=== PATIENT | female | born 1940 | race Caucasian/White ===

== ENCOUNTER 2017-06-13 14:26 | Emergency (ER) | payer MEDICARE, BC ==
[2017-06-13] MEDS ORDERED: ATARAX 25 MG PO ONE (15:42)
[2017-06-13] MEDS ORDERED: TYLENOL 325 MG PO ONE (15:46)
--- NOTE | 2017-06-13 15:46 | ERPHSYRPT ---
- History of Present Illness Time Seen by Provider: 06/13/17 15:31 Source: patient, family () Physician History: CC: high blood pressure Hx: 76 y/o patient of RONAL Flores. She has hx of HTN. She has recent sinus drng. She noted elevated BP this AM so took an extra norvasc tablet. No chest pain, abd pain, N/V, N/T/W. She has some headache. Was worried about BP so came to ER. Severity: mild Allergies/Adverse Reactions: aspirin Allergy (Mild, Verified 06/13/17 15:24) Sulfa (Sulfonamide Antibiotics) Allergy (Mild, Verified 06/13/17 15:24) Home Medications: Amlodipine Besylate [Norvasc] 2.5 mg PO UD 06/13/17 [History] Lisinopril 20 mg [Zestril 20 MG] 20 mg PO DAILY 06/13/17 [History] Hx Tetanus, Diphtheria Vaccination/Date Given: Yes Hx Influenza Vaccination/Date Given: No Hx Pneumococcal Vaccination/Date Given: Yes - Review of Systems Constitutional: No Fever, No Chills Eyes: No Vision Changes Respiratory: No Dyspnea Cardiac: No Chest Pain Abdominal/Gastrointestinal: No Abdominal Pain, No Nausea, No Vomiting Musculoskeletal: No Back Pain, No Neck Pain Skin: No Rash Neurological: Headache, No Dizziness, No Focal Weakness, No Parasthesia All Other Systems: Reviewed and Negative - Past Medical History Pertinent Past Medical History: Yes Neurological History: No Pertinent History ENT History: No Pertinent History Cardiac History: Hypertension Respiratory History: Pneumonia Endocrine Medical History: Liver Disease, Other Musculoskeletal History: No Pertinent History GI Medical History: Colitis, Diverticulitis, Diverticulosis, GERD, Gallbladder Disease, Hemorrhoids, Polyps, Ulcer History: No Pertinent History Psycho-Social History: No Pertinent History Female Reproductive Disorders: No Pertinent History Other Medical History: anemia,LIVER DUCT PROBLEM - Past Surgical History Past Surgical History: Yes Cardiac: No Pertinent History Respiratory: No Pertinent History Gastrointestinal: Appendectomy, Cholecystectomy Genitourinary: No Pertinent History Musculoskeletal: Orthopedic Surgery Female Surgical History: Hysterectomy Other Surgical History: rt wrist with plate place and lt foot ,TONSILS - Social History Smoking Status: Never smoker Exposure to second hand smoke: No Drug Use: none Patient Lives Alone: No - Nursing Vital Signs Nursing Vital Signs: Initial Vital Signs Temperature 97.6 F 06/13/17 15:15 Pulse Rate 87 06/13/17 15:15 Respiratory Rate 18 06/13/17 15:15 Blood Pressure 174/100 06/13/17 15:15 O2 Sat by Pulse Oximetry 98 06/13/17 15:15 Pain Scale Pain Intensity 2 - Physical Exam General Appearance: alert Eye Exam: PERRL/EOMI Ears, Nose, Throat Exam: normal ENT inspection, moist mucous membranes Neck Exam: normal inspection, non-tender, supple Respiratory Exam: normal breath sounds Cardiovascular Exam: regular rate/rhythm Gastrointestinal/Abdomen Exam: soft, No tenderness, No distention Back Exam: normal inspection Extremity Exam: normal inspection, normal range of motion Neurologic Exam: alert, oriented x 3, cooperative, sensation nml, No motor deficits Skin Exam: warm, dry, No rash - Course Nursing assessment & vital signs reviewed: Yes EKG Interpreted by Me: RATE (82), Sinus Rhythm, NORMAL AXIS, NORMAL INTERVALS ( QTc 423), NORMAL QRS, NORMAL ST-T - Radiology Exams cxr X-ray Interpretation: Reviewed by me, Negative Ordered Tests: Active Orders 24 hr Category Date Time Status Clean Catch Urine Specimen STAT Care 06/13/17 15:41 Active EKG-ER Only STAT Care 06/13/17 15:41 Active IV Insertion STAT Care 06/13/17 15:41 Active CHEST 2 VIEWS (PA AND LAT) Stat Exams 06/13/17 15:42 Taken CBC W DIFF Stat Lab 06/13/17 15:53 Completed CMP Stat Lab 06/13/17 15:53 Completed UA W/ MICROSCOPIC Stat Lab 06/13/17 16:10 Completed Medication Summary Discontinued Medications Generic Name Dose Route Start Last Admin Trade Name Suresh PRN Reason Stop Dose Admin Acetaminophen 650 mg 06/13/17 15:46 06/13/17 15:59 Tylenol 325 Mg PO 06/13/17 15:47 650 mg STAT ONE Administration Acetaminophen Confirm 06/13/17 15:58 Tylenol 325 Mg Administered 06/13/17 15:59 Dose 650 mg .ROUTE .STK-MED ONE Hydroxyzine HCl 25 mg 06/13/17 15:42 06/13/17 15:53 Atarax 25 Mg PO 06/13/17 15:43 25 mg STAT ONE Administration Hydroxyzine HCl Confirm 06/13/17 15:47 Atarax 25 Mg Administered 06/13/17 15:48 Dose 25 mg .ROUTE .STK-MED ONE Lab/Rad Data: Laboratory Result Diagrams 06/13/17 15:53 06/13/17 15:53 Laboratory Results 06/13/17 06/13/17 06/13/17 Range/Units 16:10 15:53 15:53 WBC (4.0-10.5) K/mm3 RBC (4.1-5.4) M/mm3 Hgb (12.0-16.0) gm/dl Hct (35-47) % MCV (78-100) fl MCH (26-32) pg MCHC (32-36) g/dl RDW (11.5-14.0) % Plt Count (150-450) K/mm3 MPV (6-9.5) fl Gran % (36.0-66.0) % Lymphocytes % (24.0-44.0) % Monocytes % (0.0-12.0) % Eosinophils % (0.00-5.0) % Basophils % (0.0-0.4) % Basophils # (0-0.4) Sodium 143 (136-145) mEq/L Potassium 3.7 (3.5-5.1) mEq/L Chloride 108 H (98-107) mEq/L Carbon Dioxide 28.0 (21-32) mEq/L Anion Gap 10.7 (5-15) MEQ/L BUN 10 (9-20) mg/dL Creatinine 1.13 (0.55-1.30) mg/dl Estimated GFR 50 ML/MIN Glucose 211 H (70-110) MG/DL Hemoglobin A1c 5.7 (4.5-6.2) Calcium 9.8 (8.5-10.1) mg/dL Total Bilirubin 0.50 (0.2-1.0) mg/dL AST 22 (15-37) U/L ALT 29 (12-78) U/L Alkaline Phosphatase 98 (46-116) U/L Serum Total Protein 6.9 (6.4-8.2) gm/dL Albumin 3.4 (3.4-5.0) g/dL Ur Collection Type CCMS Urine Color YELLOW (YELLOW) Urine Appearance SLIGHTLY CLOUDY (CLEAR) Urine pH 8.0 (5-6) Ur Specific [place] 1.010 (1.005-1.025) Urine Protein NEGATIVE (Negative) Urine Ketones NEGATIVE (NEGATIVE) Urine Blood 50 (0-5) Ruben/ul Urine Nitrite NEGATIVE (NEGATIVE) Urine Bilirubin NEGATIVE (NEGATIVE) Urine Urobilinogen NORMAL (0-1) mg/dL Ur Leukocyte Esterase 1+ (NEGATIVE) Urine Microscopic RBC 0-2 (0-2) /HPF Urine Microscopic WBC 0-2 (0-5) /HPF Ur Epithelial Cells RARE (FEW) /HPF Urine Bacteria RARE (NEGATIVE) /HPF Urine Glucose 500 (NEGATIVE) mg/dL Specimen Received 1610 06/13/17 06/13/17 Range/Units 15:53 WBC 7.4 (4.0-10.5) K/mm3 RBC 4.41 (4.1-5.4) M/mm3 Hgb 14.5 (12.0-16.0) gm/dl Hct 43.2 (35-47) % MCV 98.0 (78-100) fl MCH 32.9 H (26-32) pg MCHC 33.6 (32-36) g/dl RDW 12.6 (11.5-14.0) % Plt Count 227 (150-450) K/mm3 MPV 8.7 (6-9.5) fl Gran % 55.8 (36.0-66.0) % Lymphocytes % 31.3 (24.0-44.0) % Monocytes % 11.0 (0.0-12.0) % Eosinophils % 1.5 (0.00-5.0) % Basophils % 0.4 (0.0-0.4) % Basophils # 0.03 (0-0.4) Sodium (136-145) mEq/L Potassium (3.5-5.1) mEq/L Chloride (98-107) mEq/L Carbon Dioxide (21-32) mEq/L Anion Gap (5-15) MEQ/L BUN (9-20) mg/dL Creatinine (0.55-1.30) mg/dl Estimated GFR ML/MIN Glucose (70-110) MG/DL Hemoglobin A1c (4.5-6.2) Calcium (8.5-10.1) mg/dL Total Bilirubin (0.2-1.0) mg/dL AST (15-37) U/L ALT (12-78) U/L Alkaline Phosphatase (46-116) U/L Serum Total Protein (6.4-8.2) gm/dL Albumin (3.4-5.0) g/dL Ur Collection Type Urine Color (YELLOW) Urine Appearance (CLEAR) Urine pH (5-6) Ur Specific [place] (1.005-1.025) Urine Protein (Negative) Urine Ketones (NEGATIVE) Urine Blood (0-5) Ruben/ul Urine Nitrite (NEGATIVE) Urine Bilirubin (NEGATIVE) Urine Urobilinogen (0-1) mg/dL Ur Leukocyte Esterase (NEGATIVE) Urine Microscopic RBC (0-2) /HPF Urine Microscopic WBC (0-5) /HPF Ur Epithelial Cells (FEW) /HPF Urine Bacteria (NEGATIVE) /HPF Urine Glucose (NEGATIVE) mg/dL Specimen Received - Progress Progress Note: 06/13/17 15:45 She is nervous about BP. She has no focal deficits nor symptoms of acute problem. Reassurance given. Will check cxr and EKG and labs. Vistaril and APAP will be given. 06/13/17 17:26 Pt feels better. No longer feels like she is in outer space. She ambulated well in the hallway. Will release to follow up with RONAL Flores. Glc high but the A1C was good. Advised no added sugar diet and follow up. Counseled pt/family regarding: lab results, diagnosis, need for follow-up - Departure Time of Disposition: 17:27 Departure Disposition: Home Clinical Impression: Essential hypertension, Hyperglycemia Condition: Stable Critical Care Time: No Referrals: ADONAY FLORES [Primary Care Provider] - Instructions: High Blood Pressure, Hyperglycemia -- Adult Additional Instructions: No added sugars. Take your normal medications as prescribed. Follow up with RONAL Flores Thursday. Check blood pressure and record it twice a day and take to office. Return for problems or concerns.
[2017-06-13] MEDS ORDERED: ATARAX 25 MG ONE (15:47)
[2017-06-13] MEDS ORDERED: TYLENOL 325 MG ONE (15:58)
[2017-06-13 16:01] LABS: BASOPHIL % 0.4 % (0.0-0.4); Eosinophil % 1.5 % (0.00-5.0); Granulocytes % 55.8 % (36.0-66.0); Lymphocytes % 31.3 % (24.0-44.0); Mean Corpuscular Hemoglobin 32.9 pg (26-32); Mean Platelet Volume 8.7 fl (6-9.5); Platelet Count 227 K/mm3 (150-450); Red Blood Count 4.41 M/mm3 (4.1-5.4); Red Cell Distribution Width 12.6 % (11.5-14.0); White Blood Count 7.4 K/mm3 (4.0-10.5)
[2017-06-13 16:16] LABS: ALBUMIN 3.4 g/dL (3.4-5.0); ANION GAP 10.7 MEQ/L (5-15); BILIRUBIN,TOTAL 0.5 mg/dL (0.2-1.0); Potassium 3.7 mEq/L (3.5-5.1); Total Protein 6.9 gm/dL (6.4-8.2)
[2017-06-13 16:18] LABS: Collection Type CCMS
[2017-06-13 16:19] LABS: Bilirubin NEGATIVE (NEGATIVE); Blood 50 Ery/ul (0-5); COMPLETE URINE MICROSCOPIC? YES; Glucose 500 mg/dL (NEGATIVE); Leukocyte Esterase 1+ (NEGATIVE)
[2017-06-13 16:25] VITALS: O2SAT 97
[2017-06-13 16:57] LABS: Bacteria RARE /HPF (NEGATIVE); Epithelial Cells RARE /HPF (FEW); WBC 0-2 /HPF (0-5)
[2017-06-13 16:58] LABS: ADD URINE CULTURE? NO (NO)
[2017-06-13 18:01] VITALS: BP 161/78; PULSE 76
--- NOTE | 2017-06-13 20:54 | XRAY ---
Indication: Hypertension. Comparison: February 12, 2016. PA/lateral chest remains hyperinflated with prominent epicardiac fat and minimal left base atelectasis/scarring. Heart is not enlarged. Bony thorax intact again with mild pectus excavatum deformity. Impression: Nonacute chest with chronic features.
== END 2017-06-13 18:10 | disposition home or self-care (01) ==
LOC: ED 14:26
DX: I10 Essential (primary) hypertension (principal); R73.9 Hyperglycemia, unspecified; R51 Headache
CPT/HCPCS: 36000; 36415; 71020; 80053; 81000; 83036; 85025; 93005; 99284; A9270-GY

== ENCOUNTER 2018-11-10 12:53 | Emergency (ER) | payer MEDICARE, BC ==
--- NOTE | 2018-11-10 13:12 | ERPHSYRPT ---
- History of Present Illness Time Seen by Provider: 11/10/18 13:05 Source: patient, family Exam Limitations: no limitations Patient Subjective Stated Complaint: Pt states "I have had high blood pressure since this morning. I went to [facility] and they sent me down here." Triage Nursing Assessment: Pt alert and oriented X 3, skin pwd Pt ambualtes with an upright steady gait, able to speak in clear full sentences. Pt in no apparent respiratory distress. Physician History: 78 y/o white female with h/o htn on a single agent Lisinopril presents with headache and found to have a high systolic bp 213. pt did take her med this am. pt went to urgent care and pt sent here. no visual changes. pt denies cp, denies soa and denies abd pain. Timing/Duration: today Severity: moderate Associated Symptoms: headaches, No nausea, No vomiting, No abdominal pain, No chest pain, No syncope Allergies/Adverse Reactions: aspirin Allergy (Mild, Verified 06/13/17 15:24) Sulfa (Sulfonamide Antibiotics) Allergy (Mild, Verified 06/13/17 15:24) Home Medications: Lisinopril 20 mg [Zestril 20 MG] 20 mg PO DAILY 06/13/17 [History] Hx Tetanus, Diphtheria Vaccination/Date Given: No Hx Influenza Vaccination/Date Given: Yes Hx Pneumococcal Vaccination/Date Given: Yes Immunizations Up to Date: Yes - Review of Systems Constitutional: No Symptoms Eyes: No Symptoms Ears, Nose, & Throat: No Symptoms Respiratory: No Symptoms Cardiac: No Symptoms Abdominal/Gastrointestinal: No Symptoms Genitourinary Symptoms: No Symptoms Musculoskeletal: No Symptoms Skin: No Symptoms Neurological: Dizziness, Headache Psychological: No Symptoms Endocrine: No Symptoms Hematologic/Lymphatic: No Symptoms Immunological/Allergic: No Symptoms All Other Systems: Reviewed and Negative - Past Medical History Pertinent Past Medical History: Yes Neurological History: No Pertinent History ENT History: No Pertinent History Cardiac History: Hypertension Respiratory History: Pneumonia Endocrine Medical History: Liver Disease, Other Musculoskeletal History: No Pertinent History GI Medical History: Colitis, Diverticulitis, Diverticulosis, GERD, Gallbladder Disease, Hemorrhoids, Polyps, Ulcer History: No Pertinent History Psycho-Social History: No Pertinent History Female Reproductive Disorders: No Pertinent History Other Medical History: anemia,LIVER DUCT PROBLEM - Past Surgical History Past Surgical History: Yes Cardiac: No Pertinent History Respiratory: No Pertinent History Gastrointestinal: Appendectomy, Cholecystectomy Genitourinary: No Pertinent History Musculoskeletal: Orthopedic Surgery Female Surgical History: Hysterectomy Other Surgical History: rt wrist with plate place and lt foot ,TONSILS - Social History Smoking Status: Never smoker Exposure to second hand smoke: No Drug Use: none Patient Lives Alone: No - Female History Hx Now: No - Nursing Vital Signs Nursing Vital Signs: Initial Vital Signs Temperature 97.6 F 11/10/18 13:03 Pulse Rate 84 11/10/18 13:03 Respiratory Rate 16 11/10/18 13:03 Blood Pressure 203/99 11/10/18 13:03 O2 Sat by Pulse Oximetry 99 11/10/18 13:03 Pain Scale Pain Intensity 0 - Physical Exam General Appearance: mild distress, alert, anxiety Eye Exam: PERRL/EOMI, eyes nml inspection Ears, Nose, Throat Exam: normal ENT inspection, TMs normal, moist mucous membranes Neck Exam: normal inspection, non-tender, supple, full range of motion Respiratory Exam: normal breath sounds, lungs clear, airway intact, No chest tenderness, No respiratory distress, No accessory muscle use, No rhonchi, No wheezing, No stridor Cardiovascular Exam: regular rate/rhythm, normal heart sounds, normal peripheral pulses Gastrointestinal/Abdomen Exam: soft, normal bowel sounds, No tenderness, No guarding, No rebound Pelvic Exam: not done Rectal Exam: not done Back Exam: normal inspection, normal range of motion, No CVA tenderness, No vertebral tenderness Extremity Exam: normal inspection, normal range of motion, pelvis stable Neurologic Exam: alert, oriented x 3, cooperative, master at arms II-XII nml as tested, normal mood/affect Skin Exam: normal color, warm, dry Lymphatic Exam: No adenopathy SpO2 Interpretation: normal SpO2: 99 O2 Delivery: Room Air - Course Nursing assessment & vital signs reviewed: Yes EKG Interpreted by Me: RATE (86), Sinus Rhythm, NORMAL AXIS, Non-specific ST Changes, Other (no change from comparison ekg dated 06/13/17) Ordered Tests: Active Orders 24 hr Category Date Time Status Service Advocate Contact STAT Care 11/10/18 13:13 Active Clean Catch Urine Specimen STAT Care 11/10/18 13:12 Active EKG-ER Only STAT Care 11/10/18 13:12 Active IV Insertion STAT Care 11/10/18 13:12 Active HEAD WITHOUT CONTRAST [CT] Stat Exams 11/10/18 13:13 Completed CBC W DIFF Stat Lab 11/10/18 13:12 Completed CMP Stat Lab 11/10/18 13:12 Completed CULTURE,URINE Stat Lab 11/10/18 13:12 Received UA W/RFX UR CULTURE Stat Lab 11/10/18 13:12 Completed Medication Summary Generic Name Dose Route Start Last Admin Trade Name Freq PRN Reason Stop Dose Admin Sodium Chloride 1,000 mls @ 50 mls/hr 11/10/18 13:15 11/10/18 13:29 Sodium Chloride 0.9% 1000 Ml IV 12/10/18 13:14 50 mls/hr .Q20H JACY Administration Discontinued Medications Generic Name Dose Route Start Last Admin Trade Name Freq PRN Reason Stop Dose Admin Labetalol HCl 20 mg 11/10/18 13:14 11/10/18 13:29 Trandate 20 Mg/5 Ml Syringe IV 11/10/18 13:15 20 mg STAT ONE Administration Labetalol HCl Confirm 11/10/18 13:19 Trandate 20 Mg/5 Ml Syringe Administered 11/10/18 13:20 Dose 20 mg IV .[employer]MED ONE Lab/Rad Data: Laboratory Result Diagrams 11/10/18 13:12 11/10/18 13:12 Laboratory Results 11/10/18 11/10/18 11/10/18 Range/Units 13:12 13:12 13:12 WBC 7.9 (4.0-10.5) K/mm3 RBC 4.65 (4.1-5.4) M/mm3 Hgb 15.3 (12.0-16.0) gm/dl Hct 45.8 (35-47) % MCV 98.5 (78-100) fl MCH 32.9 H (26-32) pg MCHC 33.4 (32-36) g/dl RDW 13.0 (11.5-14.0) % Plt Count 244 (150-450) K/mm3 MPV 8.8 (6-9.5) fl Gran % 48.6 (36.0-66.0) % Eos # (Auto) 0.10 (0-0.5) Absolute Lymphs (auto) 3.14 (1.0-4.6) Absolute Monos (auto) 0.80 (0.0-1.3) Lymphocytes % 39.6 (24.0-44.0) % Monocytes % 10.1 (0.0-12.0) % Eosinophils % 1.3 (0.00-5.0) % Basophils % 0.4 (0.0-0.4) % Absolute Granulocytes 3.86 (1.4-6.9) Basophils # 0.03 (0-0.4) Sodium 141 (137-145) mmol/L Potassium 4.2 (3.5-5.1) mmol/L Chloride 106 (98-107) mmol/L Carbon Dioxide 27 (22-30) mmol/L Anion Gap 11.7 (5-15) MEQ/L BUN 13 (7-17) mg/dL Creatinine 0.98 (0.52-1.04) mg/dL Estimated GFR 58.6 ML/MIN Glucose 106 (74-106) mg/dL Calcium 10.5 H (8.4-10.2) mg/dL Total Bilirubin 1.00 (0.2-1.3) mg/dL AST 35 (14-36) U/L ALT 33 (0-35) U/L Alkaline Phosphatase 119 (38-126) U/L Serum Total Protein 8.0 (6.3-8.2) g/dL Albumin 4.4 (3.5-5.0) g/dL Urine Color STRAW (YELLOW) Urine Appearance CLEAR (CLEAR) Urine pH 7.0 (5-6) Ur Specific [place] 1.006 (1.005-1.025) Urine Protein NEGATIVE (Negative) Urine Ketones NEGATIVE (NEGATIVE) Urine Blood SMALL (0-5) Ruben/ul Urine Nitrite NEGATIVE (NEGATIVE) Urine Bilirubin NEGATIVE (NEGATIVE) Urine Urobilinogen NEGATIVE (0-1) mg/dL Ur Leukocyte Esterase TRACE (NEGATIVE) Urine WBC (Auto) 3-5 (0-5) /HPF Urine RBC (Auto) NONE (0-2) /HPF U Epithel Cells (Auto) NONE (FEW) /HPF Urine Bacteria (Auto) RARE (NEGATIVE) /HPF Urine Culture Reflexed YES (NO) Urine Glucose NEGATIVE (NEGATIVE) mg/dL - Progress Progress: improved Progress Note: 11/10/18 14:16 ct brain-no acute intracranial process Counseled pt/family regarding: lab results, diagnosis, need for follow-up, rad results - Departure Time of Disposition: 15:41 Departure Disposition: Home Clinical Impression: Dizziness, Hypertensive urgency, UTI (urinary tract infection) Condition: Stable Critical Care Time: Yes Critical Care Time(excluding separately billable procedures): 30-74 minutes Referrals: ADONAY MARMOLEJO [Primary Care Provider] - Additional Instructions: take medications as prescribed. call your primary doctor today to arrange follow up appointment. drink plenty of fluids. Prescriptions: Cephalexin Mh 500 mg [Keflex 500 mg] 500 mg PO TID #21 capsule Meclizine HCl 25 mg [Antivert 25 mg] 25 mg PO Q8H PRN #10 tablet PRN Reason: Dizziness
[2018-11-10] MEDS ORDERED: TRANDATE 20 MG/5 ML SYRINGE IV ONE ×2 (13:14→13:19)
[2018-11-10] MEDS ORDERED: Sodium Chloride 0.9% 1000 ML 1,000 ML IV SCH (13:15)
[2018-11-10] MEDS ORDERED: Sodium Chloride 0.9% 1000 ML 1,000 ML ONE (13:17)
[2018-11-10 13:53] LABS: BASOPHIL % 0.4 % (0.0-0.4); Basophil (Absolute #) 0.03 (0-0.4); Eosinophil % 1.3 % (0.00-5.0); Granulocyte Absolute (ANC) 3.86 (1.4-6.9); Granulocytes % 48.6 % (36.0-66.0); Hematocrit 45.8 % (35-47); Hemoglobin 15.3 gm/dl (12.0-16.0); Lymphocyte (Absolute #) 3.14 (1.0-4.6); Lymphocytes % 39.6 % (24.0-44.0); Mean Cell Volume 98.5 fl (78-100); Mean Corpuscular Hemoglobin 32.9 pg (26-32); Mean Corpuscular Hgb Concent. 33.4 g/dl (32-36); Mean Platelet Volume 8.8 fl (6-9.5); Monocytes % 10.1 % (0.0-12.0); Platelet Count 244 K/mm3 (150-450); Red Blood Count 4.65 M/mm3 (4.1-5.4); White Blood Count 7.9 K/mm3 (4.0-10.5)
[2018-11-10 13:58] LABS: ALBUMIN 4.4 g/dL (3.5-5.0); ANION GAP 11.7 MEQ/L (5-15); Calcium 10.5 mg/dL (8.4-10.2); Creatinine 1 0.98 mg/dL (0.52-1.04); Potassium 4.2 mmol/L (3.5-5.1)
--- NOTE | 2018-11-10 14:10 | XRAY ---
Indication: Dizziness. Elevated blood pressure. Multiple contiguous axial images obtained through the head without contrast. Comparison: April 05, 2013. Again age-appropriate global atrophy and minimal periventricular degenerative micro-ischemia. New finding for old left caudate head lacunar infarct. No acute intracranial hemorrhage, abnormal extra-axial fluid question, or mass effect. Fourth ventricle is midline without hydrocephalus. Ortega-white matter differentiation preserved. Bony calvarium intact. Visualized paranasal sinuses and mastoid air cells are clear. Impression: 1. Again nonacute senile brain. 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 2. No acute intracranial abnormalities. CT DI 69.25
[2018-11-10 15:26] LABS: Appearance CLEAR (CLEAR); Bacteria RARE /HPF (NEGATIVE); Bilirubin NEGATIVE (NEGATIVE); Blood SMALL Ery/ul (0-5); Glucose NEGATIVE (NEGATIVE); Ketones NEGATIVE (NEGATIVE); Leukocyte Esterase TRACE (NEGATIVE); Nitrite NEGATIVE (NEGATIVE); Protein,Urine Dip NEGATIVE (Negative); Specific Gravity 1.006 (1.005-1.025); Urobilinogen NEGATIVE mg/dL (0-1)
[2018-11-10] MEDS ORDERED: KEFLEX 500 MG PO ONE (15:45)
[2018-11-10] MEDS ORDERED: ANTIVERT 25 MG PO ONE (15:46)
[2018-11-10] MEDS ORDERED: ANTIVERT 25 MG ONE (15:50)
[2018-11-10 15:51] VITALS: BP 167/84; PULSE 68; O2SAT 100
[2018-11-10] MEDS ORDERED: KEFLEX 500 MG ONE (15:51)
== END 2018-11-10 16:14 | disposition home or self-care (01) ==
LOC: ED 12:53
DX: R42 Dizziness and giddiness (principal); I16.0 Hypertensive urgency; N39.0 Urinary tract infection, site not specified; R51 Headache; I10 Essential (primary) hypertension; K21.9 Gastro-esophageal reflux disease without esophagitis
CPT/HCPCS: 36000; 36415; 70450; 80053; 81001; 85025; 87086; 93005; 93041; 96360; 96361; 96374; 96375; 96376; 99284; A9270-GY

== ENCOUNTER 2019-03-21 08:12 | Day surgery (SDC) | payer MEDICARE, BC ==
[2019-03-21] MEDS ORDERED: Lactated Ringers 1,000 ML IV ONE (08:23)
[2019-03-21] MEDS ORDERED: Lactated Ringers 1,000 ML IV SCH (08:30)
[2019-03-21 08:43] VITALS: O2SAT 98
[2019-03-21] MEDS ORDERED: DIPRIVAN 200 MG/20 ML IV ONE ×2 (10:20→10:32)
[2019-03-21 12:06] VITALS: PULSE 64
[2019-03-21 12:13] VITALS: BP 133/66
--- NOTE | 2019-03-22 09:15 | OP ---
PROCEDURE DATE/TIME: 03/21/2019 1017 PREOPERATIVE DIAGNOSES: 1) Gastroesophageal reflux disease. 2) Abdominal pain. 3) Polyps. POSTOPERATIVE DIAGNOSES: 1) Peptic ulcer disease. 2) Gastric polyps. 3) Mild gastroesophageal reflux disease. 4) Cecal polyp. 5) Rectal polyp. 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 PROCEDURES: 1) EGD with hot snare gastric polyps and cold biopsies. 2) Colonoscopy with hot forceps polypectomy x3. PROCEDURE PERFORMED BY: Corazon Tripp M.D. ANESTHESIA: MAC. ESTIMATED BLOOD LOSS: Minimal. COMPLICATIONS: None. SPECIMENS: 1) Antral biopsies. 2) Gastric polyp. 3) Cecal polyp. 4) Rectal polyp x2. HISTORY: This is a patient who presents for EGD and colonoscopy. She is having reflux as well as some upper abdominal pain. She also has a history of polyps and needs a colonoscopy. Risks, benefits, alternatives regarding EGD and colonoscopy have been discussed with her preoperative. H&P and consent reviewed with her and confirmed. DESCRIPTION OF PROCEDURE: She was then brought back to the endoscopy suite. Laid in the left lateral decubitus position. A complete time out performed. The scope gently introduced into the mouth, oropharynx and down into the esophagus, stomach, duodenum. The duodenum looked normal. In the stomach the patient has peptic ulcers. She has two ulcers in the antrum. There are clots on both. There is no active or old blood in the stomach. The ulcers appeared to be benign. She does have some surrounding gastritis this is mild. On retroflex view the upper portion of the stomach looked healthy. She does have a few very small gastric polyps, one was slightly larger then the left. These all appeared very benign. I did take this as a sample using hot snare this is entirely retrieved and sent to pathology. We then also took antral biopsies by the ulcers and sent these to pathology to rule out Helicobacter pylori disease. All sites were hemostatic. The scope was then carefully withdrawn. The patient had some mild reflux. No sign of any significant Martínez's disease. The junction of the esophagus and stomach is at the appropriate location however it is very slightly weak. She may have a very small hiatal hernia here although on retroflex view we do not confirm the hiatal hernia and on this view it is very subtle. The scope was then completely withdrawn. The remainder of the esophagus looked normal. The patient tolerated this part of the procedure well. She was then repositioned for colonoscopy. First a rectal exam was done. The scope was then inserted and gently advanced to the level of the cecum. The prep was satisfactory. In the cecum the appendiceal orifice and ileocecal valve were visualized. There was a cecal polyp close to the appendiceal orifice which was very small and benign. It was taken in its entirety with hot forceps and sent to pathology. The scope was then completely removed taking a circumferential view the ileocecal valve looked normal. There were two arteriovenous malformations, one in the cecum and one in the ascending colon. These were very small less than about 1 cm in size, nonbleeding. No old or new blood in the colon at all. Outside of this she also had diverticulosis and the diverticula were worse in her sigmoid colon but they were spread throughout her entire colon including her ascending colon. She then also had two rectal polyps which were very small and benign. These were taken in entirety with hot forceps. All sites were hemostatic. These were sent to pathology. The patient tolerated the procedure very well. There were no immediate complications. PLAN: Plan for EGD in three months, proton pump inhibitor therapy, Carafate therapy due to the ulcer disease. Plan for next colonoscopy in three years due to the finding of multiple polyps.
== END 2019-03-21 12:10 | disposition home or self-care (01) ==
LOC: SDC 08:12
PROVIDERS: ATTEND Surgery
DX: K21.9 Gastro-esophageal reflux disease without esophagitis (principal); R10.9 Unspecified abdominal pain; K27.9 Peptic ulcer, site unspecified, unspecified as acute or chronic, without hemorrhage or perforation; K31.7 Polyp of stomach and duodenum; K63.5 Polyp of colon; K62.1 Rectal polyp; K57.30 Diverticulosis of large intestine without perforation or abscess without bleeding; Q27.33 Arteriovenous malformation of digestive system vessel; K29.70 Gastritis, unspecified, without bleeding
CPT/HCPCS: 99100; J2704

== ENCOUNTER 2020-11-01 09:54 | Observation (INO) | payer MEDICARE, BC ==
--- NOTE | 2020-11-01 10:09 | ERPHSYRPT ---
- History of Present Illness Time Seen by Provider: 11/01/20 10:09 Source: patient, EMS Exam Limitations: no limitations Physician History: This is a 80-year-old white female who has a history of anemia, liver duct issues, hypertension, diverticulitis and diverticulosis and presents via EMS for syncopal episode and abdominal pain that occurred prior to arrival. Patient was using the commode when she had a syncopal episode while attempting to use the restroom. She has had this happen in the past and was found to have diverticulitis episode. Patient denies shortness of breath and she denies chest pain. Patient denies nausea vomiting and denies diarrhea. She has noticed no hematemesis or passage of bright red blood per rectum or dark stools. Patient states that she believes she has been passing normal stools. Occurred: just prior to arrival Reason for Fall: fainted Injuries/Pain Location: no injury Loss of Consciousness: unsure Quality: aching Severity of Pain-Max: moderate Severity of Pain-Current: moderate Associated Symptoms (Fall): abdominal pain, nausea Allergies/Adverse Reactions: aspirin Allergy (Mild, Verified 03/21/19 08:30) Sulfa (Sulfonamide Antibiotics) Allergy (Mild, Verified 03/21/19 08:30) amoxicillin Allergy (Verified 03/21/19 08:30) cephalexin [From Keflex] Allergy (Verified 03/21/19 08:30) Home Medications: Lisinopril 20 mg [Zestril 20 MG] 20 mg PO DAILY 06/13/17 [History] Amlodipine Besylate 5 mg [Norvasc 5 mg] 5 mg PO DAILY 03/14/19 [History] Cyanocobalamin (Vitamin B-12) [Vitamin B-12] 1,000 mcg SL DAILY 03/14/19 [History] Polyethylene Glycol 3350 [Miralax Powder] 119 g PO DAILY 03/14/19 [History] Rosuvastatin Calcium 5 mg PO DAILY 03/14/19 [History] Ursodiol 300 mg [Actigall 300MG] 1 cap PO BID 03/14/19 [History] Hx Tetanus, Diphtheria Vaccination/Date Given: No Hx Influenza Vaccination/Date Given: Yes Hx Pneumococcal Vaccination/Date Given: Yes Travel Risk - International Travel Have you traveled outside of the country in past 3 weeks: No - Coronavirus Screening Are you exhibiting any of the following symptoms?: No Close contact with a COVID-19 positive Pt in past 14-21 Days: No - Review of Systems Constitutional: No Symptoms Eyes: No Symptoms Ears, Nose, & Throat: No Symptoms Respiratory: No Symptoms Cardiac: No Symptoms Abdominal/Gastrointestinal: Abdominal Pain, Nausea, No Vomiting, No Diarrhea Genitourinary Symptoms: No Symptoms Musculoskeletal: No Symptoms Skin: No Symptoms Neurological: No Symptoms Psychological: No Symptoms Endocrine: No Symptoms Hematologic/Lymphatic: No Symptoms Immunological/Allergic: No Symptoms All Other Systems: Reviewed and Negative - Past Medical History Pertinent Past Medical History: Yes Neurological History: No Pertinent History ENT History: No Pertinent History Cardiac History: High Cholesterol, Hypertension Respiratory History: No Pertinent History Endocrine Medical History: No Pertinent History Musculoskeletal History: No Pertinent History GI Medical History: Colitis, Gallbladder Disease History: No Pertinent History Psycho-Social History: No Pertinent History Female Reproductive Disorders: No Pertinent History Other Medical History: anemia,LIVER DUCT PROBLEM - Past Surgical History Past Surgical History: Yes Neuro Surgical History: No Pertinent History Cardiac: No Pertinent History Respiratory: No Pertinent History Gastrointestinal: Cholecystectomy Genitourinary: No Pertinent History Musculoskeletal: Orthopedic Surgery Female Surgical History: Hysterectomy Other Surgical History: spurs on feet. r wrist fracture with titanium plate repair - Social History Smoking Status: Never smoker Exposure to second hand smoke: No Drug Use: none Patient Lives Alone: No - Nursing Vital Signs Nursing Vital Signs: Initial Vital Signs Temperature 97.4 F 11/01/20 09:59 Pulse Rate 78 11/01/20 09:59 Respiratory Rate 18 11/01/20 09:59 Blood Pressure 143/67 11/01/20 09:59 O2 Sat by Pulse Oximetry 99 11/01/20 09:59 Pain Scale Pain Intensity 6 - [place] Coma Score Best Eye Response ([place]): (4) open spontaneously Best Verbal Response ([place]): (5) oriented Best Motor Response ([place]): (6) obeys commands [place] Total: 15 - Physical Exam General Appearance: no apparent distress, alert, anxiety Head Injury: no evidence of injury Eye Exam: PERRL/EOMI, eyes nml inspection ENT Exam: airway nml Neck Exam: supple, trachea midline, full range of motion, normal alignment, normal inspection Respiratory/Chest Exam: No chest tenderness, No normal breath sounds, No respiratory distress Gastrointestinal Exam: soft, normal bowel sounds, tenderness, guarding Rectal Exam: not done Back Exam: normal inspection, normal range of motion, No CVA tenderness, No vertebral tenderness Extremity Exam: normal inspection, normal range of motion, capillary refill <3 sec, pelvis stable Neurologic Exam: alert, oriented x 3, cooperative, business center manager II-XII nml as tested, normal mood/affect, nml cerebellar function, nml station & gait, sensation nml Skin Exam: normal color, warm, dry O2 Delivery: Room Air - Course Nursing assessment & vital signs reviewed: Yes EKG Interpreted by Me: RATE (85), Sinus Rhythm, NORMAL AXIS, NORMAL INTERVALS, NORMAL QRS, NORMAL ST-T, Other (There are no acute ischemic changes on today's EKG. There are no significant changes when compared to EKG dated 03/18/2019.) Ordered Tests: Active Orders 24 hr Category Date Time Status EKG-ER Only STAT Care 11/01/20 10:14 Active IV Insertion STAT Care 11/01/20 10:14 Active ABDOMEN AND PELVIS W/0 CONTRAS [CT] Stat Exams 11/01/20 10:15 Completed HEAD WITHOUT CONTRAST [CT] Stat Exams 11/01/20 10:16 Completed AMYLASE Stat Lab 11/01/20 10:40 Completed CBC W DIFF Stat Lab 11/01/20 10:40 Completed CMP Stat Lab 11/01/20 10:40 Completed CULTURE,URINE Stat Lab 11/01/20 10:40 Received LIPASE Stat Lab 11/01/20 10:40 Completed Lactic Acid Stat Lab 11/01/20 10:38 Completed UA W/RFX UR CULTURE Stat Lab 11/01/20 10:40 Completed Transfer Order Routine Transfer 11/01/20 Ordered Medication Summary Generic Name Dose Route Start Last Admin Trade Name Freq PRN Reason Stop Dose Admin Levofloxacin/Dextrose 500 mg in 100 mls @ 100 mls/hr 11/01/20 11:28 Levofloxacin 500mg/100ml D5w IV 11/01/20 12:27 STAT STA Metronidazole 500 mg in 100 mls @ 200 mls/hr 11/01/20 11:28 11/01/20 11:33 Flagyl 500 Mg Ivpb IV 11/01/20 11:57 200 mls/hr STAT STA 200 mls/hr Administration Discontinued Medications Generic Name Dose Route Start Last Admin Trade Name Freq PRN Reason Stop Dose Admin Hydromorphone HCl 0.5 mg 11/01/20 10:14 11/01/20 10:44 Hydromorphone 1 Mg/Ml Injection IV 11/01/20 10:15 0.5 mg STAT ONE Administration Hydromorphone HCl Confirm 11/01/20 10:37 Hydromorphone 1 Mg/Ml Injection Administered 11/01/20 10:38 Dose 1 mg .ROUTE .STK-MED ONE Hydromorphone HCl 0.5 mg 11/01/20 11:19 11/01/20 11:25 Hydromorphone 1 Mg/Ml Injection IV 11/01/20 11:20 0.5 mg STAT ONE Administration Hydromorphone HCl Confirm 11/01/20 11:21 Hydromorphone 1 Mg/Ml Injection Administered 11/01/20 11:22 Dose 1 mg .ROUTE .STK-MED ONE Sodium Chloride 1,000 mls @ 999 mls/hr 11/01/20 10:14 11/01/20 10:41 Sodium Chloride 0.9% 1000 Ml IV 11/01/20 11:14 999 mls/hr .Q1H1M STA Administration Sodium Chloride Confirm 11/01/20 10:37 Sodium Chloride 0.9% 1000 Ml Administered 11/01/20 10:38 Dose 1,000 mls @ ud .ROUTE .STK-MED ONE Metronidazole Confirm 11/01/20 11:31 Flagyl 500 Mg Ivpb Administered 11/01/20 11:32 Dose 500 mg in 100 mls @ ud IV .STK-MED ONE Levofloxacin/Dextrose Confirm 11/01/20 11:43 Levofloxacin 500mg/100ml D5w Administered 11/01/20 11:44 Dose 500 mg in 100 mls @ ud IV .STK-MED ONE Lab/Rad Data: Laboratory Result Diagrams 11/01/20 10:40 11/01/20 10:40 Laboratory Results 11/01/20 11/01/20 11/01/20 Range/Units 10:40 10:40 10:40 WBC 7.4 (4.0-10.5) K/mm3 RBC 4.12 (4.1-5.4) M/mm3 Hgb 13.4 (12.0-16.0) gm/dl Hct 41.7 (35-47) % MCV 101.2 H (78-100) fl MCH 32.5 H (26-32) pg MCHC 32.1 (32-36) g/dl RDW 12.4 (11.5-14.0) % Plt Count 239 (150-450) K/mm3 MPV 8.5 (7.5-11.0) fl Gran % 65.7 (36.0-66.0) % Eos # (Auto) 0.08 (0-0.5) Absolute Lymphs (auto) 1.75 (1.0-4.6) Absolute Monos (auto) 0.68 (0.0-1.3) Lymphocytes % 23.6 L (24.0-44.0) % Monocytes % 9.2 (0.0-12.0) % Eosinophils % 1.1 (0.00-5.0) % Basophils % 0.4 (0.0-0.4) % Absolute Granulocytes 4.89 (1.4-6.9) Basophils # 0.03 (0-0.4) Sodium 136 L (137-145) mmol/L Potassium 4.3 (3.5-5.1) mmol/L Chloride 104 (98-107) mmol/L Carbon Dioxide 27 (22-30) mmol/L Anion Gap 10.1 (5-15) MEQ/L BUN 13 (7-17) mg/dL Creatinine 0.98 (0.52-1.04) mg/dL Estimated GFR 58.3 ML/MIN Glucose 187 H (74-106) mg/dL Lactic Acid (0.4-2.0) Calcium 10.1 (8.4-10.2) mg/dL Total Bilirubin 0.90 (0.2-1.3) mg/dL AST 33 (14-36) U/L ALT 26 (0-35) U/L Alkaline Phosphatase 95 (38-126) U/L Serum Total Protein 7.1 (6.3-8.2) g/dL Albumin 3.9 (3.5-5.0) g/dL Amylase 62 (30-110) U/L Lipase 76 (23-300) U/L Urine Color VIMAL (YELLOW) Urine Appearance SLIGHTLY CLOUDY (CLEAR) Urine pH 7.0 (5-6) Ur Specific [place] 1.015 (1.005-1.025) Urine Protein 30 (Negative) Urine Ketones NEGATIVE (NEGATIVE) Urine Blood NEGATIVE (0-5) Ruben/ul Urine Nitrite NEGATIVE (NEGATIVE) Urine Bilirubin NEGATIVE (NEGATIVE) Urine Urobilinogen 4 (0-1) mg/dL Ur Leukocyte Esterase SMALL (NEGATIVE) Urine WBC (Auto) 6-10 (0-5) /HPF Urine RBC (Auto) 3-5 (0-2) /HPF U Hyaline Cast (Auto) 11-25 (0-2) /LPF U Epithel Cells (Auto) RARE (FEW) /HPF Urine Bacteria (Auto) FEW (NEGATIVE) /HPF Urine Mucus (Auto) SLIGHT (NEGATIVE) /HPF Urine Culture Reflexed YES (NO) Urine Glucose NEGATIVE (NEGATIVE) mg/dL 11/01/20 Range/Units 10:38 WBC (4.0-10.5) K/mm3 RBC (4.1-5.4) M/mm3 Hgb (12.0-16.0) gm/dl Hct (35-47) % MCV (78-100) fl MCH (26-32) pg MCHC (32-36) g/dl RDW (11.5-14.0) % Plt Count (150-450) K/mm3 MPV (7.5-11.0) fl Gran % (36.0-66.0) % Eos # (Auto) (0-0.5) Absolute Lymphs (auto) (1.0-4.6) Absolute Monos (auto) (0.0-1.3) Lymphocytes % (24.0-44.0) % Monocytes % (0.0-12.0) % Eosinophils % (0.00-5.0) % Basophils % (0.0-0.4) % Absolute Granulocytes (1.4-6.9) Basophils # (0-0.4) Sodium (137-145) mmol/L Potassium (3.5-5.1) mmol/L Chloride (98-107) mmol/L Carbon Dioxide (22-30) mmol/L Anion Gap (5-15) MEQ/L BUN (7-17) mg/dL Creatinine (0.52-1.04) mg/dL Estimated GFR ML/MIN Glucose (74-106) mg/dL Lactic Acid 1.2 (0.4-2.0) Calcium (8.4-10.2) mg/dL Total Bilirubin (0.2-1.3) mg/dL AST (14-36) U/L ALT (0-35) U/L Alkaline Phosphatase (38-126) U/L Serum Total Protein (6.3-8.2) g/dL Albumin (3.5-5.0) g/dL Amylase (30-110) U/L Lipase (23-300) U/L Urine Color (YELLOW) Urine Appearance (CLEAR) Urine pH (5-6) Ur Specific [place] (1.005-1.025) Urine Protein (Negative) Urine Ketones (NEGATIVE) Urine Blood (0-5) Ruben/ul Urine Nitrite (NEGATIVE) Urine Bilirubin (NEGATIVE) Urine Urobilinogen (0-1) mg/dL Ur Leukocyte Esterase (NEGATIVE) Urine WBC (Auto) (0-5) /HPF Urine RBC (Auto) (0-2) /HPF U Hyaline Cast (Auto) (0-2) /LPF U Epithel Cells (Auto) (FEW) /HPF Urine Bacteria (Auto) (NEGATIVE) /HPF Urine Mucus (Auto) (NEGATIVE) /HPF Urine Culture Reflexed (NO) Urine Glucose (NEGATIVE) mg/dL - Progress Progress: unchanged, improved, pain not gone completely, re-examined Progress Note: 11/01/20 11:24 CAT scan of the head without contrast shows no acute intracranial abnormalities. There is a new but remote appearing subcentimeter left caudate infarct which is compared to the CT scan that was done of the head on April 05, 2013. 11/01/20 11:39 Medical decision making: This patient has clinical findings and CAT scan of the abdomen pelvis findings consistent with distal transverse colon and descending colon colitis. There is circumferential wall thickening with minimal stranding present favoring colitis on the CAT scan of the abdomen pelvis without contrast. There is no evidence of free air or abscess formation. I spoke with Dr. Burnett. I reviewed the patient history, condition, physical findings, laboratory results and results of the CAT scan of the abdomen and pelvis without contrast. He agrees to place the patient in observation. We will provide the patient with IV hydration, IV antibiotics, pain control and repeat labs tomorrow morning. Counseled pt/family regarding: lab results, diagnosis, need for follow-up, rad results - Departure Departure Disposition: Observation Clinical Impression: Colitis Condition: Stable Critical Care Time: No Referrals: ADONAY MARMOLEJO [Primary Care Provider] -
[2020-11-01] MEDS ORDERED: Sodium Chloride 0.9% 1000 ML 1,000 ML IV STA (10:14)
[2020-11-01] MEDS ORDERED: Hydromorphone 1 mg/ml Injection IV ONE ×2 (10:14→11:19)
[2020-11-01] MEDS ORDERED: Hydromorphone 1 mg/ml Injection ONE ×2 (10:37→11:21)
[2020-11-01] MEDS ORDERED: Sodium Chloride 0.9% 1000 ML 1,000 ML ONE (10:37)
[2020-11-01 10:45] LABS: Absolute Neutrophil Ct (ANC) 4.89 (1.4-6.9); BASOPHIL % 0.4 % (0.0-0.4); Basophil (Absolute #) 0.03 (0-0.4); Eosinophil % 1.1 % (0.00-5.0); Eosinophil (Absolute #) 0.08 (0-0.5); Hematocrit 41.7 % (35-47); Hemoglobin 13.4 gm/dl (12.0-16.0); Lymphocyte (Absolute #) 1.75 (1.0-4.6); Lymphocytes % 23.6 % (24.0-44.0); Mean Cell Volume 101.2 fl (78-100); Mean Corpuscular Hemoglobin 32.5 pg (26-32); Mean Corpuscular Hgb Concent. 32.1 g/dl (32-36); Mean Platelet Volume 8.5 fl (7.5-11.0); Monocyte (Absolute #) 0.68 (0.0-1.3); Monocytes % 9.2 % (0.0-12.0); Neutrophil % 65.7 % (36.0-66.0); Platelet Count 239 K/mm3 (150-450); Red Blood Count 4.12 M/mm3 (4.1-5.4); Red Cell Distribution Width 12.4 % (11.5-14.0); White Blood Count 7.4 K/mm3 (4.0-10.5)
[2020-11-01 11:05] LABS: Appearance SLIGHTLY CLOUDY (CLEAR); Bacteria FEW /HPF (NEGATIVE); Bilirubin NEGATIVE (NEGATIVE); Blood NEGATIVE Ery/ul (0-5); Epithelial Cells RARE /HPF (FEW); Glucose NEGATIVE (NEGATIVE); Ketones NEGATIVE (NEGATIVE); Leukocyte Esterase SMALL (NEGATIVE); Mucus SLIGHT /HPF (NEGATIVE); Nitrite NEGATIVE (NEGATIVE); Protein,Urine Dip 30 (Negative); Specific Gravity 1.015 (1.005-1.025); Urobilinogen 4 mg/dL (0-1)
[2020-11-01 11:16] LABS: ALBUMIN 3.9 g/dL (3.5-5.0); ANION GAP 10.1 MEQ/L (5-15); BILIRUBIN,TOTAL 0.9 mg/dL (0.2-1.3); Calcium 10.1 mg/dL (8.4-10.2); Creatinine 1 0.98 mg/dL (0.52-1.04); EST GLOMERULAR FILTRATION RATE 58.3 ML/MIN; Potassium 4.3 mmol/L (3.5-5.1); Total Protein 7.1 g/dL (6.3-8.2)
--- NOTE | 2020-11-01 11:22 | XRAY ---
Indication: Syncope. Status post fall. Multiple contiguous axial images obtained through the head without contrast. Comparison: April 05, 2013. There is age-appropriate global atrophy and minimal periventricular degenerative micro-ischemia bilaterally. Left caudate head demonstrates new 7 mm focus old infarct. No acute intracranial hemorrhage, abnormal extra-axial fluid collection, or mass effect. Fourth ventricle is midline without hydrocephalus. Bony calvarium intact. Visualized paranasal sinuses and mastoid air cells are clear. Impression: 1. New remote-appearing subcentimeter left caudate infarct. 2. Atrophy and degenerative micro-ischemia within normal limits for patient's age. 3. No acute intracranial abnormalities.
--- NOTE | 2020-11-01 11:23 | XRAY ---
Indication: Bilateral abdominal pain. History diverticulitis and colitis. Multiple contiguous axial images obtained through the abdomen and pelvis without contrast. Comparison: February 01, 2019. Lung bases again demonstrates minimal subsegmental atelectasis/scarring, left greater than right. No infiltrate or effusion. Heart is not enlarged. Noncontrasted stomach and bowel loops appear nonobstructed. Distal transverse and descending colon now demonstrates mild circumferential wall thickening with very minimal stranding favoring colitis. No free fluid/air. Again descending/sigmoid diverticulosis, cholecystectomy, appendectomy, and hysterectomy. Remaining liver, pancreas, spleen, adrenal glands, kidneys, ureters, and bladder are unremarkable for noncontrast exam. There remains mild scattered aortoiliac calcifications without AAA. Osseous structures intact again with mild degenerative changes throughout the thoracolumbar spine and minimal levoscoliosis centered at L3. Stable small fatty umbilical hernia. Impression: 1. New left hemicolon circumferential wall thickening with minimal stranding favoring colitis. No convocations. 2. Again incidental colonic diverticulosis, fatty umbilical hernia, and chronic bony findings. 3. Remaining CT abdomen/pelvis without contrast exam is negative.
[2020-11-01] MEDS ORDERED: Levofloxacin 500MG/100ML D5W 500 MG/100 ML BAG IV STA (11:28)
[2020-11-01] MEDS ORDERED: FLAGYL 500 MG IVPB 500 MG/100 ML BAG IV STA (11:28)
[2020-11-01] MEDS ORDERED: FLAGYL 500 MG IVPB 500 MG/100 ML BAG IV ONE (11:31)
[2020-11-01] MEDS ORDERED: Levofloxacin 500MG/100ML D5W 500 MG/100 ML BAG IV ONE (11:43)
[2020-11-01] MEDS ORDERED: Zofran 4 MG/2 ML VIAL IV ONE (12:07)
[2020-11-01] MEDS ORDERED: Zofran 4 MG/2 ML VIAL ONE (12:11)
[2020-11-01] MEDS ORDERED: HUMULIN R SQ PRN (12:54)
[2020-11-01] MEDS ORDERED: Hydromorphone 1 mg/ml Injection IV PRN (12:54)
[2020-11-01] MEDS: Zofran 4 MG/2 ML VIAL IV PRN (14:37)
[2020-11-01] MEDS: Sodium Chloride 0.9% 1000 ML 1,000 ML IV SCH (14:38)
[2020-11-01 15:08] LABS: Eosinophil 1 % (0.00-3.0); Lymphocytes 22 % (24-44); Monocyte 7 % (0.0-12.0); Neutrophils 70 % (36.0-66.0); Total Cells Counted 100
[2020-11-01 15:09] LABS: Platelet Estimate NORMAL (NORMAL); Toxic Granulation 1+
[2020-11-01] MEDS: FLAGYL 500 MG IVPB 500 MG/100 ML BAG IV SCH ×2 (17:07→23:38)
[2020-11-01] MEDS: NORVASC 5 MG PO SCH (21:13)
[2020-11-02] MEDS: Sodium Chloride 0.9% 1000 ML 1,000 ML IV SCH ×2 (01:55→14:03)
[2020-11-02] MEDS: TYLENOL 325 MG PO PRN ×2 (04:30→21:11)
[2020-11-02] MEDS: FLAGYL 500 MG IVPB 500 MG/100 ML BAG IV SCH ×4 (05:25→23:18)
[2020-11-02 05:42] LABS: Absolute Neutrophil Ct (ANC) 9.56 (1.4-6.9); BASOPHIL % 0.2 % (0.0-0.4); Basophil (Absolute #) 0.02 (0-0.4); Eosinophil % 0.2 % (0.00-5.0); Eosinophil (Absolute #) 0.03 (0-0.5); Hematocrit 36.3 % (35-47); Hemoglobin 11.7 gm/dl (12.0-16.0); Lymphocytes % 17.5 % (24.0-44.0); Mean Cell Volume 100.6 fl (78-100); Mean Corpuscular Hemoglobin 32.4 pg (26-32); Mean Corpuscular Hgb Concent. 32.2 g/dl (32-36); Mean Platelet Volume 8.4 fl (7.5-11.0); Monocyte (Absolute #) 1.23 (0.0-1.3); Monocytes % 9.4 % (0.0-12.0); Neutrophil % 72.7 % (36.0-66.0); Platelet Count 220 K/mm3 (150-450); Red Blood Count 3.61 M/mm3 (4.1-5.4); Red Cell Distribution Width 12.1 % (11.5-14.0); White Blood Count 13.1 K/mm3 (4.0-10.5)
[2020-11-02 05:48] LABS: ALBUMIN 2.9 g/dL (3.5-5.0); ALKALINE PHOSPHATASE 73 U/L (38-126); ANION GAP 10.5 MEQ/L (5-15); BLOOD UREA NITROGEN 11 mg/dL (7-17); CHLORIDE 109 mmol/L (98-107); Calcium 8.8 mg/dL (8.4-10.2); Carbon Dioxide 21 mmol/L (22-30); Creatinine 1 0.77 mg/dL (0.52-1.04); EST GLOMERULAR FILTRATION RATE > 60.0 ML/MIN; Glucose 116 mg/dL (74-106); Potassium 3.8 mmol/L (3.5-5.1); SGOT/AST 27 U/L (14-36); SGPT/ALT 22 U/L (0-35); SODIUM 137 mmol/L (137-145); Total Protein 5.6 g/dL (6.3-8.2)
[2020-11-02] MEDS: Zocor 10MG PO SCH (09:29)
[2020-11-02] MEDS: Zestril 20 MG PO SCH (09:29)
[2020-11-02] MEDS: Levofloxacin 500MG/100ML D5W 500 MG/100 ML BAG IV SCH (09:30)
--- NOTE | 2020-11-02 09:37 | HP ---
CHIEF COMPLAINT: Abdominal pain and syncopal episode. HISTORY OF PRESENT ILLNESS: The patient is a 80 year-old white female who reports that she had went to the bathroom and apparently had a syncopal episode. The patient had been having abdominal pain and this occurred apparently in the local [employer] store. She was brought to the emergency room, evaluated and was found to have distended and tender abdomen. She does have a history of previous diverticulitis episodes. The patient was admitted to the hospital for IV antibiotics, further observation and treatment. PAST MEDICAL/SURGICAL HISTORY: Otherwise significant for hypertension, hyperlipidemia. She has had colitis and gallbladder disease and apparently a liver duct problem. She had a hysterectomy and previous wrist fracture. HOME MEDICATIONS: Currently lisinopril 20 mg a day, amlodipine 5 mg a day, vitamin B12 1,000 mcg sublingual daily, MiraLAX daily, rosuvastatin 5 mg a day, Actigall 300 mg b.i.d. ALLERGIES: ASPIRIN. SULFA. AMOXICILLIN. KEFLEX. PHYSICAL EXAMINATION: The patient's vital signs on admission showed her temperature to be 97.4F, pulse 78, respiratory rate 18 and blood pressure 143/67. O2 saturation 99%. HEENT: Normocephalic, atraumatic. Pupils equal round reactive to light. Extraocular movements intact. Oropharynx is pink and moist. NECK: Supple without lymphadenopathy, thyromegaly or JVD. CHEST: Clear to auscultation. HEART: Regular rate and rhythm. ABDOMEN: Initially diffusely tender mostly in the left lower quadrant but the patient is somewhat distended. Overnight the patient has done better with flatulence and had a large bowel movement and much less tender this morning on repeat exam. EXTREMITIES: Without cyanosis, clubbing or edema. NEUROLOGIC: The patient is alert and oriented x3. No focal deficits were noted. LAB DATA AND TESTS: Procalcitonin level 0.074. Glucose was noted to be 116. Her liver enzymes were normal. Her electrolytes were essentially normal. Her white count initially was not elevated up to 7,400 with hemoglobin 13.4 and PLT count 239,000. The following day was somewhat elevated at 13,100, hemoglobin 11.7, PLT count 220,000. The patient's UA showed the 25 hyaline cast and slight protein although her creatinine was in the normal range. BUN 11, creatinine 0.77. CT scan of the abdomen showed new left rigoberto-colon circumferential wall thickening with minimal stranding favoring colitis. Remaining CT scan of the abdomen and pelvis was negative. ASSESSMENT: A patient with diverticulitis recurrent episodes. The patient was placed on IV Levaquin and Flagyl afterwards the patient had somewhat improved although the white count increased. The abdominal pain and distention is less. The patient will continue the medications, IV fluids and placed on a clear liquid diet. At this time surgical consultation will be obtained if the patient has worsening of her condition.
[2020-11-02] MEDS ORDERED: NON-FORMULARY ITEM (Rosuvastatin Calcium [Rosuvastatin Calcium] 5 MG) PO SCH (10:00)
[2020-11-02] MEDS: Zofran 4 MG/2 ML VIAL IV PRN (18:05)
[2020-11-02] MEDS: NORVASC 5 MG PO SCH (21:11)
[2020-11-03] MEDS: FLAGYL 500 MG IVPB 500 MG/100 ML BAG IV SCH ×3 (05:26→16:01)
[2020-11-03] MEDS: Sodium Chloride 0.9% 1000 ML 1,000 ML IV SCH (05:28)
[2020-11-03 06:32] LABS: Absolute Neutrophil Ct (ANC) 6.21 (1.4-6.9); BASOPHIL % 0.2 % (0.0-0.4); Basophil (Absolute #) 0.02 (0-0.4); Eosinophil % 0.9 % (0.00-5.0); Eosinophil (Absolute #) 0.08 (0-0.5); Hematocrit 35.5 % (35-47); Hemoglobin 11.4 gm/dl (12.0-16.0); Lymphocytes % 24.9 % (24.0-44.0); Mean Cell Volume 100.9 fl (78-100); Mean Corpuscular Hemoglobin 32.4 pg (26-32); Mean Corpuscular Hgb Concent. 32.1 g/dl (32-36); Mean Platelet Volume 8.4 fl (7.5-11.0); Monocyte (Absolute #) 0.63 (0.0-1.3); Monocytes % 6.8 % (0.0-12.0); Neutrophil % 67.2 % (36.0-66.0); Platelet Count 205 K/mm3 (150-450); Red Blood Count 3.52 M/mm3 (4.1-5.4); Red Cell Distribution Width 12.2 % (11.5-14.0); White Blood Count 9.2 K/mm3 (4.0-10.5)
[2020-11-03 06:49] LABS: ALBUMIN 2.7 g/dL (3.5-5.0); ALKALINE PHOSPHATASE 66 U/L (38-126); ANION GAP 7.5 MEQ/L (5-15); BLOOD UREA NITROGEN 8 mg/dL (7-17); CHLORIDE 112 mmol/L (98-107); Calcium 8.7 mg/dL (8.4-10.2); Carbon Dioxide 21 mmol/L (22-30); EST GLOMERULAR FILTRATION RATE > 60.0 ML/MIN; Glucose 103 mg/dL (74-106); Potassium 4.2 mmol/L (3.5-5.1); SGOT/AST 25 U/L (14-36); SGPT/ALT 17 U/L (0-35); SODIUM 136 mmol/L (137-145); Total Protein 5.4 g/dL (6.3-8.2)
[2020-11-03] MEDS: Zestril 20 MG PO SCH (09:15)
[2020-11-03] MEDS: Zocor 10MG PO SCH (09:15)
[2020-11-03] MEDS: Levofloxacin 500MG/100ML D5W 500 MG/100 ML BAG IV SCH (09:16)
[2020-11-03] MEDS ORDERED: Acidophilus TABLET PO SCH (10:40)
[2020-11-03 12:44] VITALS: BP 142/66; PULSE 77; O2SAT 98
--- NOTE | 2020-11-03 15:31 | PCM.SSS ---
History of Present Illness - Chief Complaint Chief Complaint: COLITIS History of Present Illness: is a 80 year old female seen and examined this am. Patient reports that she feels much better this am. Her pain has improved. She still reports a decreased appetite. She used to have flares once a year of diverticulitis. She reports this is the first one in 4-5 years. She was currently not eating a diverticulosis diet at home.She has been tolerating clear diet. She reports she has been passing gas. She has had 1 formed stool overnight. Denies nausea or vomiting. She is anxious to go home. - Review of Systems Constitutional: No Fever Eyes: No Symptoms Ears, Nose, & Throat: No Symptoms Respiratory: No Cough, No Short Of Breath, No Wheezing Cardiac: Edema, Syncope, No Chest Pain Abdominal/Gastrointestinal: Abdominal Pain, Diarrhea, Appetite Changes, No Nausea, No Vomiting, No Constipation Genitourinary Symptoms: No Symptoms Musculoskeletal: No Symptoms Skin: No Symptoms Neurological: No Symptoms Psychological: No Symptoms Medications & Allergies Home Medications: Home Medication List Lisinopril 20 mg [Zestril 20 MG] 20 mg PO DAILY 06/13/17 [History Confirmed 11/01/20] Amlodipine Besylate 5 mg [Norvasc 5 mg] 5 mg PO HS 03/14/19 [History Confirmed 11/01/20] Polyethylene Glycol 3350 [Miralax Powder] 119 g PO 1400 03/14/19 [History Confirmed 11/01/20] Rosuvastatin Calcium 5 mg PO DAILY 03/14/19 [History Confirmed 11/01/20] Ursodiol 300 mg [Actigall 300MG] 1 cap PO BID 03/14/19 [History Confirmed 11/01/20] Levofloxacin [Levaquin] 750 mg PO Q24H 7 Days #7 tablet 11/03/20 [Rx] metroNIDAZOLE [Flagyl] 500 mg PO Q6H 7 Days #28 tablet 11/03/20 [Rx] Allergies/Adverse Reactions: Allergies Allergy/AdvReac Type Severity Reaction Status Date / Time aspirin Allergy Mild Verified 03/21/19 08:30 Sulfa (Sulfonamide Allergy Mild Verified 03/21/19 08:30 Antibiotics) amoxicillin Allergy Verified 03/21/19 08:30 cephalexin [From Keflex] Allergy Verified 03/21/19 08:30 - Past Medical History Past Medical History: Yes Neurological History: No Pertinent History ENT History: No Pertinent History Cardiac History: Hypertension Respiratory History: No Pertinent History Endocrine Medical History: No Pertinent History Musculoskelatal History: No Pertinent History GI Medical History: Colitis, Diverticulitis, Diverticulosis History: No Pertinent History Pyscho-Social History: No Pertinent History Reproductive Disorders: Abnormal Uterine Bleeding Comment: anemia,LIVER DUCT PROBLEM - Female History Hx Last Menstrual Period: post Are you now?: No - Past Surgical History Past Surgical History: Yes Neuro Surgical History: No Pertinent History Cardiac History: No Pertinent History Respiratory Surgery: No Pertinent History GI Surgical History: Cholecystectomy Genitourinary Surgical Hx: No Pertinent History Musculskeletal Surgical Hx: No Pertinent History Female Surgical History: Hysterectomy Other Surgical History: spurs on feet. r wrist fracture with titanium plate repair - Social History Smoking Status: Never smoker Exposure to second hand smoke: No Alcohol: None Drug Use: none - Physical Exam Vital Signs: Vital Signs - 24 hr Temp Pulse Resp BP Pulse Ox 11/03/20 12:00 98.1 F 77 20 142/66 98 11/03/20 06:55 97.9 F 81 18 130/63 96 11/03/20 03:51 97.8 F 83 17 144/63 94 L 11/03/20 00:00 76 14 98 11/02/20 20:25 94 L 11/02/20 19:43 99.0 F 77 18 142/67 94 L 11/02/20 15:43 98.5 F 77 18 126/61 97 General Appearance: no apparent distress Neurologic Exam: alert, oriented x 3, cooperative, normal mood/affect, No disoriented, No confusion, No agitation, No depressed mood/affect Eye Exam: eyes nml inspection, No scleral icterus Ears, Nose, Throat Exam: moist mucous membranes Neck Exam: normal inspection Respiratory Exam: normal breath sounds, lungs clear, No chest tenderness, No respiratory distress, No diminished breath sounds, No wheezing Cardiovascular Exam: regular rate/rhythm, normal heart sounds, edema (mild edema in extremities), No murmur, No friction rub, No gallop Gastrointestinal/Abdomen Exam: soft, tenderness (Patient was tender in the epigastric area), No normal bowel sounds (hyperactive bowel sounds), No distention, No mass, No guarding Pelvic Exam: not done Rectal Exam: not done Back Exam: normal inspection Extremity Exam: normal inspection (of upper extremities) Skin Exam: normal color, warm, dry, No rash Results - Labs Lab/Micro Results: Lab Results-Last 24 Hours 11/03/20 11/03/20 Range/Units 06:00 06:00 WBC 9.2 (4.0-10.5) K/mm3 RBC 3.52 L (4.1-5.4) M/mm3 Hgb 11.4 L (12.0-16.0) gm/dl Hct 35.5 (35-47) % MCV 100.9 H (78-100) fl MCH 32.4 H (26-32) pg MCHC 32.1 (32-36) g/dl RDW 12.2 (11.5-14.0) % Plt Count 205 (150-450) K/mm3 MPV 8.4 (7.5-11.0) fl Gran % 67.2 H (36.0-66.0) % Eos # (Auto) 0.08 (0-0.5) Absolute Lymphs (auto) 2.30 (1.0-4.6) Absolute Monos (auto) 0.63 (0.0-1.3) Lymphocytes % 24.9 (24.0-44.0) % Monocytes % 6.8 (0.0-12.0) % Eosinophils % 0.9 (0.00-5.0) % Basophils % 0.2 (0.0-0.4) % Absolute Granulocytes 6.21 (1.4-6.9) Basophils # 0.02 (0-0.4) Sodium 136 L (137-145) mmol/L Potassium 4.2 (3.5-5.1) mmol/L Chloride 112 H (98-107) mmol/L Carbon Dioxide 21 L (22-30) mmol/L Anion Gap 7.5 (5-15) MEQ/L BUN 8 (7-17) mg/dL Creatinine 0.80 (0.52-1.04) mg/dL Estimated GFR > 60.0 ML/MIN Glucose 103 (74-106) mg/dL Calcium 8.7 (8.4-10.2) mg/dL Total Bilirubin 0.30 (0.2-1.3) mg/dL AST 25 (14-36) U/L ALT 17 (0-35) U/L Alkaline Phosphatase 66 (38-126) U/L Serum Total Protein 5.4 L (6.3-8.2) g/dL Albumin 2.7 L (3.5-5.0) g/dL Microbiology 11/01/20 10:40 Urine Culture - Final Urine, Void MIXED ANDRE; 3 OR MORE TYPES. NO PREDOMINANT ORGANISM. NO FURTHER WORKUP. PLEASE RESUBMIT IF CLINICALLY INDICATED. Assessment/Plan (1) Colitis Current Visit: Yes Status: Acute Assessment & Plan: Patient is on levaquin and flagyl day 3. Patient is on clear liquids and will trial soft diet. Decreased IV fluids. Patient's WBC has trended down. She still had some moderate abdominal pain with palpation in mid epigastric area. Will plan on discharge today if patient's pain is manageable and she can tolerate her PO diet. She will go home on flagyl and levaquin. She was instructed to take probiotic. She was instructed to hold her miralax for one week. Patient was encouraged to follow diverticulosis diet. Code(s): K52.9 - NONINFECTIVE GASTROENTERITIS AND COLITIS, UNSPECIFIED (2) Syncope Current Visit: Yes Status: Acute Assessment & Plan: Patient did report that she had significant abdominal pain and started to sweat when she was at the [employer] [place]. Patient reports that is why EMS was called. She reports that she has been getting up to go to restroom and has not felt like she was going to pass out. Code(s): R55 - SYNCOPE AND COLLAPSE (3) Essential hypertension Current Visit: No Status: Acute Assessment & Plan: Patient will go home on routine blood pressure meds Code(s): I10 - ESSENTIAL (PRIMARY) HYPERTENSION Hospital Summary - Hospital Course Hospital Course: 80 yr old female was admitted from ER following syncopal episode and acute diverticulitis flare. Patient had CT scan that was neg for bleed. She was started on IV fluids and IV antibiotics and made NPO. Patient was transitioned to clear liquid diet which she tolerated. She was then transitioned to soft diet. Patient was reporting feeling better and would like to go home. She will discharged today with plans to complete her antibiotic course and follow up with PCP in the next week. Patient was instructed to follow diverticulosis diet and to use probiotic at this time. Urine culture was neg for UTI. - Vitals & Intake/Output Vital Signs: Vital Signs Temperature 98.1 F 11/03/20 12:00 Pulse Rate 77 11/03/20 12:00 Respiratory Rate 20 11/03/20 12:00 Blood Pressure 142/66 11/03/20 12:00 O2 Sat by Pulse Oximetry 98 11/03/20 12:00 Intake & Output: Intake & Output 11/01/20 11/02/20 11/03/20 11/04/20 11:59 11:59 11:59 11:59 Intake Total 2446 1429 Output Total 1450 2100 Balance 996 -671 Weight 67.132 kg 67.8 kg 69.1 kg - Lab Result Diagrams: 11/03/20 06:00 11/03/20 06:00 Lab Results-Last 24 Hrs: Lab Results-Last 24 Hours 11/03/20 11/03/20 Range/Units 06:00 06:00 WBC 9.2 (4.0-10.5) K/mm3 RBC 3.52 L (4.1-5.4) M/mm3 Hgb 11.4 L (12.0-16.0) gm/dl Hct 35.5 (35-47) % MCV 100.9 H (78-100) fl MCH 32.4 H (26-32) pg MCHC 32.1 (32-36) g/dl RDW 12.2 (11.5-14.0) % Plt Count 205 (150-450) K/mm3 MPV 8.4 (7.5-11.0) fl Gran % 67.2 H (36.0-66.0) % Eos # (Auto) 0.08 (0-0.5) Absolute Lymphs (auto) 2.30 (1.0-4.6) Absolute Monos (auto) 0.63 (0.0-1.3) Lymphocytes % 24.9 (24.0-44.0) % Monocytes % 6.8 (0.0-12.0) % Eosinophils % 0.9 (0.00-5.0) % Basophils % 0.2 (0.0-0.4) % Absolute Granulocytes 6.21 (1.4-6.9) Basophils # 0.02 (0-0.4) Sodium 136 L (137-145) mmol/L Potassium 4.2 (3.5-5.1) mmol/L Chloride 112 H (98-107) mmol/L Carbon Dioxide 21 L (22-30) mmol/L Anion Gap 7.5 (5-15) MEQ/L BUN 8 (7-17) mg/dL Creatinine 0.80 (0.52-1.04) mg/dL Estimated GFR > 60.0 ML/MIN Glucose 103 (74-106) mg/dL Calcium 8.7 (8.4-10.2) mg/dL Total Bilirubin 0.30 (0.2-1.3) mg/dL AST 25 (14-36) U/L ALT 17 (0-35) U/L Alkaline Phosphatase 66 (38-126) U/L Serum Total Protein 5.4 L (6.3-8.2) g/dL Albumin 2.7 L (3.5-5.0) g/dL Micro Results-Entire Visit: Microbiology 11/01/20 10:40 Urine Culture - Final Urine, Void MIXED ANDRE; 3 OR MORE TYPES. NO PREDOMINANT ORGANISM. NO FURTHER WORKUP. PLEASE RESUBMIT IF CLINICALLY INDICATED. - Discharge Disposition: Home, Self-Care Condition: Stable Prescriptions: New metroNIDAZOLE [Flagyl] 500 mg PO Q6H 7 Days #28 tablet Levofloxacin [Levaquin] 750 mg PO Q24H 7 Days #7 tablet Continue Lisinopril 20 mg [Zestril 20 MG] 20 mg PO DAILY Amlodipine Besylate 5 mg [Norvasc 5 mg] 5 mg PO HS Ursodiol 300 mg [Actigall 300MG] 1 cap PO BID Rosuvastatin Calcium 5 mg PO DAILY Polyethylene Glycol 3350 [Miralax Powder] 119 g PO 1400 Instructions: Diverticulitis (DC) Additional Instructions: Start daily over the counter Probiotic Follow up with: ADONAY MARMOLEJO [Primary Care Provider] - (follow-up Thursday or Thursday (11-05, )) Forms: Discharge Instructions
[2020-11-04] MEDS ORDERED: Acidophilus TABLET PO SCH (10:00)
== END 2020-11-03 16:45 | disposition home or self-care (01) ==
LOC: ED 09:54 → MED SURG 12:37
PROVIDERS: ADMIT Family Medicine; ATTEND Family Medicine
DX: K52.9 Noninfective gastroenteritis and colitis, unspecified (principal); K57.32 Diverticulitis of large intestine without perforation or abscess without bleeding; R55 Syncope and collapse; I10 Essential (primary) hypertension; R10.9 Unspecified abdominal pain; E78.5 Hyperlipidemia, unspecified; R11.0 Nausea; Z79.899 Other long term (current) drug therapy
CPT/HCPCS: 36000; 36415; 70450; 74176; 80053; 81001; 82150; 83605; 83690; 84145; 85025; 87086; 93005; 93268; 94760; 96360; 96365; 96374; 96375; 96376; 99285; G0378; J1170; J1956; J2405; A9270-GY

== ENCOUNTER 2022-05-23 06:00 | Day surgery (SDC) | payer MEDICARE, BC ==
[2022-05-23] MEDS ORDERED: Lactated Ringers 1,000 ML IV SCH (06:30)
[2022-05-23] MEDS ORDERED: DIPRIVAN 200 MG/20 ML IV ONE (07:46)
[2022-05-23] MEDS ORDERED: Versed 2 MG/2 ML Injection ONE (07:46)
[2022-05-23] MEDS ORDERED: Xylocaine-Mpf 2% 5 Ml Vial ONE (07:46)
[2022-05-23 08:55] VITALS: BP 141/70; PULSE 69; O2SAT 94
--- NOTE | 2022-05-23 10:05 | OP ---
SURGERY DATE/TIME: 05/23/2022 0750 PREOPERATIVE DIAGNOSIS: Abdominal pain, history of diverticulosis, history of colon polyps. POSTOPERATIVE DIAGNOSIS: Sigmoid diverticulosis otherwise normal colon. PROCEDURE: Colonoscopy. SURGEON: Dr. Javier Burnett. ANESTHESIA: MAC. Medications given by anesthesia department. HISTORY: The patient is a 41-year-old white female complaining of left-sided abdominal pain. She has history of diverticulosis with probable diverticulitis. She reports she was hospitalized in October for abdominal pain. She has been having problems off and on since that time. She also reports previous history of having colon polyps removed. The patient was felt the need to have endoscopic evaluation. She was appraised of the risks of the procedure including the risk of perforation, phlebitis, untoward reaction to medication, bleeding and missed lesions. The patient verbalized her understanding and desired to have the procedure performed. DESCRIPTION OF PROCEDURE: The patient was given the medications by the anesthesia department. She had continuous pulse oximetry, ECG monitoring, intermittent blood pressure monitoring during the examination. She was placed in the left lateral decubitus position. A digital rectal examination was performed and revealed normal anal sphincter tone and no masses. The flexible Olympus pediatric colonoscope was used to intubate the rectum. A view of the colon was developed sequentially to the cecum. Upon insertion and withdrawal, including a retroflex view in the rectum was noted sigmoid diverticulosis and somewhat tight curvature in the sigmoid colon otherwise no mucosal lesions were encountered. The scope was removed from the patient who tolerated the procedure well and was sent back to OP recovery in good condition.
== END 2022-05-23 09:08 | disposition home or self-care (01) ==
LOC: SDC 06:00
PROVIDERS: ATTEND Family Medicine
DX: Z09 Encounter for follow-up examination after completed treatment for conditions other than malignant neoplasm (principal); Z86.010 Personal history of colon polyps; Z87.19 Personal history of other diseases of the digestive system; R10.9 Unspecified abdominal pain; K57.30 Diverticulosis of large intestine without perforation or abscess without bleeding
CPT/HCPCS: 99100; J2250; J2704

== ENCOUNTER 2023-03-23 10:30 | Day surgery (SDC) | payer MEDICARE, BC ==
[~2023-03-23 10:30] MED LIST: Lactated Ringers 1,000 ML IV ONE; Lactated Ringers 1,000 ML IV SCH
[2023-03-23] MEDS ORDERED: Xylocaine-Mpf 2% 5 Ml Vial ONE (12:18)
[2023-03-23] MEDS ORDERED: DIPRIVAN 200 MG/20 ML IV ONE (12:18)
[2023-03-23 13:37] VITALS: O2SAT 100
[2023-03-23 13:47] VITALS: BP 158/57; PULSE 67
--- NOTE | 2023-03-24 09:35 | OP ---
PROCEDURE DATE/TIME: 03/23/2023 1238 PREOPERATIVE DIAGNOSIS: Abdominal pain. POSTOPERATIVE DIAGNOSES: 1) Moderate antral gastritis. 2) Small hiatal hernia (1 cm). PROCEDURE: EGD with biopsy. PROCEDURE PERFORMED BY: Corazon Tripp M.D. ESTIMATED BLOOD LOSS: Minimal. ANESTHESIA: MAC. COMPLICATIONS: None. SPECIMENS: 1) Duodenal biopsies; rule out celiac disease. 2) Antral biopsies; rule out Helicobacter pylori. HISTORY: This is a patient who is having abdominal pain who is here for EGD. Risks, benefits and alternatives have been discussed with her. Her H&P and consent has been reviewed with her as well. She would like to proceed. DESCRIPTION OF PROCEDURE: She was brought to the endoscopy suite, laid in the left lateral decubitus position. A complete time out performed. First, the scope inserted into the mouth, oropharynx down to the esophagus, stomach and then the duodenum. The visualized portion of the first and second portions of the duodenum are normal. The scope is then carefully withdrawn back into her stomach. She does have a moderate degree of antral gastritis with inflammation and erythema. I took antral biopsies and then sent these to rule out Helicobacter pylori. I did also because of her symptoms take multiple biopsies in her duodenum also with cold forceps to rule out celiac disease. All biopsy sites in the duodenum and antrum were hemostatic. We did a retroflex view to look at the hiatus. She does have a subtle weakness here consistent with a small hiatal hernia. The upper portion of the stomach is okay. I did not see any other masses or findings of concern. She has a couple of very tiny benign appearing polyps and then the scope is carefully withdrawn back into the distal esophagus. Her gastroesophageal junction is at about 38 cm. Again, we visualized a very small hiatal hernia and then the scope is further withdrawn. The remainder of the esophagus looked normal. The patient tolerated the procedure very well. There were no immediate complications. I have discussed with her family regarding her medications and she will also be following up with me as an outpatient. Plan for EGD on an as needed basis and further plans to be determined based on symptoms after treatment. I have discussed all of the findings and instructions with her family as well.
== END 2023-03-23 13:57 | disposition home or self-care (01) ==
LOC: SDC 10:30
PROVIDERS: ATTEND Surgery
DX: K44.9 Diaphragmatic hernia without obstruction or gangrene (principal); K29.70 Gastritis, unspecified, without bleeding; R10.9 Unspecified abdominal pain; E11.9 Type 2 diabetes mellitus without complications
CPT/HCPCS: 82947; 99100; J2704